=== PATIENT | female | born 1960 | race African-American/Black ===

== ENCOUNTER → 2020-01-07 | Outpatient (CLI) | payer OTHER ==
[~2020-01-07] MED LIST: LIORESAL 10 MG10 MG PO; MEDROLDOSEPACK PO; MOBIC15 MG PO
--- NOTE | 2020-01-07 11:32 | 2DMMODE ---
[facility] [place] [address] 2 D/M-MODE ECHOCARDIOGRAM Name: ANTOLIN FOOTE Room #: REG [facility]#: [id number] Admission: 01/07/20 Attend Phys: Mustapha Julian MD Discharge: Date of : 60 Report #: [id number] THIS REPORT FOR: cc: Martinez Arndt Sr, MD, Otis S Sr MD Santiago, Patrick MD [facility] ~ APPROVED REPORT Study performed: 01/07/2020 10:25:53 EXAM: Comprehensive 2D, Doppler, and color-flow Echocardiogram Patient Location: Echo lab Room #: 2 Status: routine BSA: 2.38 HR: 75 bpm BP: 126/68 mmHg Rhythm: NSR Other Information Study Quality: Good Indications Dyspnea Hx: PE, SOB. 2D Dimensions RVDd: 42.06 mm IVSd: 10.52 (7-11mm) LVOT Diam: 20.64 (18-24mm) LVDd: 50.26 mm PWd: 9.64 (7-11mm) Ascending Ao: 35.93 (22-36mm) LVDs: 34.50 (25-40mm) Aortic Root: 30.53 mm Volumes Left Atrial Volume (Systole) Single Plane 4CH: 44.22 mL Single Plane 2CH: 71.93 mL LA ESV Index: 25.00 mL/m2 Aortic Valve AoV Peak Kirill.: 1.67 m/s AO Peak Gr.: 11.14 mmHg LVOT Max P.22 mmHg LVOT Max V: 1.43 m/s SHANON Vmax: 2.87 cm2 [facility] [address] [place] [address] 2 D/M-MODE ECHOCARDIOGRAM Name: ANTOLIN FOOTE Room #: REG [facility]#: [id number] Admission: 01/07/20 Attend Phys: Nirav Lilly Discharge: Date of : 60 Report #: [id number] Mitral Valve E/A Ratio: 1.5 MV Decel. Time: 170.02 ms MV E Max Kirill.: 0.96 m/s MV A Kirill.: 0.62 m/s MV PHT: 49.30 ms IVRT: 87.66 ms Pulmonary Valve PV Peak Kirill.: 1.16 m/s PV Peak Gr.: 5.41 mmHg Pulmonary Vein P Vein S: 0.39 m/s P Vein A: 0.20 m/s P Vein D: 0.43 m/s P Vein A Dur.: 106.1 msec P Vein S/D Ratio: 0.91 Tricuspid Valve TR Peak Kirill.: 3.02 m/s RAP Estimate: 5.00 mmHg TR Peak Gr.: 36.55 mmHg PA Pressure: 42.00 mmHg Left Ventricle The left ventricle is normal size. There is normal left ventricular wall thickness. The left ventricular systolic function is normal. LVEF is 55%. Moderate diastolic dysfunction is present (pseudonormal filling). Right Ventricle The right ventricle is normal size. The right ventricular systolic function is normal. Atria The left atrium size is normal. The right atrium size is normal. Aortic Valve The aortic valve is normal in structure. No aortic regurgitation is present. There is no aortic valvular stenosis. Mitral Valve The mitral valve is normal in structure. Mild mitral regurgitation. No evidence of mitral valve stenosis. Tricuspid Valve The tricuspid valve is normal in structure. Mild to moderate [facility] [address] [place] [address] 2 D/M-MODE ECHOCARDIOGRAM Name: ANTOLIN FOOTE [id number] Admission: 01/07/20 Attend Phys: Nirav Lilly Discharge: Date of : 60 Report #: [id number] tricuspid regurgitation. Estimated PAP 40-45mmHg. Pulmonic Valve The pulmonary valve is normal in structure. There is no pulmonic valvular regurgitation. Great Vessels The aortic root is normal in size. The ascending aorta is normal in size. IVC is normal in size and collapses >50% with inspiration. Pericardium There is no pericardial effusion. <Conclusion> Normal left ventricular size and wall thickness Diastolic dysfunction EF of 55%, no obvious segmental wall motion abnormality Normal right heart size and function Normal atrial size Mild mitral valve insufficiency Mild to moderate tricuspid valve insufficiency Pulmonary artery systolic pressure estimated at 40 mmHg No pericardial effusion <ELECTRONICALLY SIGNED> By: Claude Saxena MD, FACC 01/07/201131 31 31 Claude Saxena MD, FACC /INF
== END ==
LOC: CAT 10:08
PROVIDERS: ATTEND Pediatrics
DX: I08.1 Rheumatic disorders of both mitral and tricuspid valves (principal); R91.1 Solitary pulmonary nodule; G47.33 Obstructive sleep apnea (adult) (pediatric); K76.0 Fatty (change of) liver, not elsewhere classified; J98.4 Other disorders of lung

== ENCOUNTER → 2020-01-07 | Outpatient (CLI) | payer OTHER ==
--- NOTE | ~2020-01-07 | SLE ---
[facility] [place] [address] [place] [address] POLYSOMNOGRAPHY STUDY Name: ANTOLIN FOOTE Room #: REG [facility]#: [id number] Admission: 01/07/20 Attend Phys: Mustapha Julian MD Discharge: Date of : 60 Report #: [id number] THIS REPORT FOR: cc: Martinez Arndt Sr, MD, Otis S Sr MD Khan, Aman U. MD ~ CC: Mustapha Arndt DATE OF SERVICE: 01/08/2020 HOME SLEEP STUDY REFERRING PHYSICIAN: Dr. Mustapha Julian. The patient is a 59-year-old who weighs 292 pounds with a BMI of 46.4. The patient's [place] score was 14. The patient underwent a home sleep study performed at [facility]. Total recording time was 444 minutes. During the night study, the patient had 5 obstructive apneas, 1 central apnea and no mixed apneas and 73 hypopneas. The patient's AHI was 11 per hour with a supine AHI of 3.7 per hour. Nocturnal oximetry study revealed an average oxygen saturation of 91% with the lowest of 77%. 111 minutes were spent with oxygen saturation of less than 90% and another 3 minutes with saturation of less than 85%. Mean heart rate was 79 beats per minute with a maximum of 125 beats per minute. IMPRESSION: 1. Mild obstructive sleep apnea at an AHI of 11 per hour. 2. Nocturnal hypoxia secondary to obstructive sleep apnea. RECOMMENDATIONS: 1. The patient has mild sleep apnea; however, the patient is clinically symptomatic with an [place] score of 14. Consider treatment of sleep apnea with either CPAP versus oral appliance. 2. Once the patient is optimally treated, then follow up in 4-6 weeks to assess compliance with treatment and to document clinical improvement. 3. Weight loss is strongly advised. 4. Avoid MIXER DIAMOND POWDER depressants. [facility] [address] [place] [address] POLYSOMNOGRAPHY STUDY Name: ANTOLIN FOOTE Room #: [facility]#: [id number] Admission: 01/07/20 Attend Phys: Mustapha Julian MD Discharge: Date of : 60 Report #: [id number] 5. Cautioned regarding driving until symptoms of sleep apnea resolve with the above recommendations. By: [id number] Wilver Keyes MD /nt
== END ==
LOC: SLEEPLAB 12:13
PROVIDERS: ATTEND Pediatrics
DX: G47.33 Obstructive sleep apnea (adult) (pediatric) (principal); R06.02 Shortness of breath

== ENCOUNTER → 2020-03-27 | Outpatient (CLI) | payer OTHER | LOC: CAT 09:57 | PROVIDERS: ATTEND Pediatrics | DX: R91.8 Other nonspecific abnormal finding of lung field (principal); J98.4 Other disorders of lung ==

== ENCOUNTER 2020-04-07 17:19 | Emergency (ER) | payer OTHER ==
[~2020-04-07] VITALS: Ht 170.2 cm; Wt 135.2 kg
[2020-04-07] MEDS ORDERED: SERTRALINE HCL100 MG PO (17:35)
[2020-04-07] MEDS ORDERED: OXYCODONE HCL E10 MG PO (17:35)
[2020-04-07] MEDS ORDERED: PROTONIX 20 MG20 MG PO (17:35)
[2020-04-07] MEDS ORDERED: ELIQUIS2.5 MG PO (17:35)
[2020-04-07] MEDS ORDERED: METFORMIN HCL500 MG PO (17:35)
[2020-04-07] MEDS ORDERED: KLONOPIN0.5 MG PO (17:36)
[2020-04-07] MEDS ORDERED: LIPITOR 20 MG T20 M1 PO (17:36)
[2020-04-07 18:14] VITALS: BP 134/74
== END 2020-04-07 18:14 | disposition home or self-care (01) ==
LOC: ER 17:19
DX: G89.29 Other chronic pain (principal); M54.5 Low back pain; Z79.899 Other long term (current) drug therapy

== ENCOUNTER 2021-02-07 00:54 | Emergency (ER) | payer OTHER ==
[~2021-02-07] VITALS: Ht 170.2 cm; Wt 127.0 kg
[~2021-02-07 00:54] MED LIST changes: +ELIQUIS2.5 MG PO; +KLONOPIN0.5 MG PO; +LIPITOR 20 MG T20 M1 PO; +METFORMIN HCL500 MG PO; +OXYCODONE HCL E10 MG PO; +PROTONIX 20 MG20 MG PO; +SERTRALINE HCL100 MG PO
[2021-02-07] MEDS ORDERED: NAPROSYN500 MG PO ×2 (01:22→12:10)
[2021-02-07] MEDS ORDERED: NORCO5 PO ×2 (01:22→09:49)
[2021-02-07 01:37] VITALS: BP 153/94
== END 2021-02-07 01:37 | disposition home or self-care (01) ==
LOC: ER 00:54
DX: M54.16 Radiculopathy, lumbar region (principal); Z79.899 Other long term (current) drug therapy

== ENCOUNTER → 2021-02-27 | Outpatient (CLI) | payer OTHER ==
[~2021-02-27] MED LIST changes: +NAPROSYN500 MG PO; +NORCO5 PO
== END ==
LOC: CAT 10:59
PROVIDERS: ATTEND Pediatrics
DX: R91.8 Other nonspecific abnormal finding of lung field (principal); M47.814 Spondylosis without myelopathy or radiculopathy, thoracic region